=== PATIENT | male | born 1975 | race Caucasian/White ===

== ENCOUNTER 2017-11-23 19:20 | Emergency (ER) | payer OTHER ==
[~2017-11-23] VITALS: Ht 175.3 cm; Wt 86.3 kg
[2017-11-23] MEDS ORDERED: NAPROSYN500 MG PO (21:17)
[2017-11-23 21:36] VITALS: BP 152/122
== END 2017-11-23 21:36 | disposition home or self-care (01) ==
LOC: EME 19:20
DX: S59.911A Unspecified injury of right forearm, initial encounter (principal); X50.1XXA Overexertion from prolonged static or awkward postures, initial encounter; Y35.813A Legal intervention involving manhandling, suspect injured, initial encounter; F17.200 Nicotine dependence, unspecified, uncomplicated
CPT/HCPCS: 99281; 99283